=== PATIENT | female | born 2000 | race Caucasian/White ===

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

== ENCOUNTER 2020-01-04 17:03 | Outpatient (CLI) | payer MEDICAID ==
[~2020-01-04] VITALS: Ht 160 cm; Wt 67.3 kg
[2020-01-04 17:00] VITALS: BP 114/56; PULSE 67; TEMP 98.3
[2020-01-04 17:18] VITALS: BP 114/56; PULSE 67; TEMP 98.3
[2020-01-04 17:43] VITALS: PULSE 78
--- NOTE | 2020-01-04 17:43 | NUR ---
1700 PATIENT HERE FOR COMPLAINTS OF CRAMPING. EFM ON FHT 125 BABY VERY ACTIVE. PATIENT 22 WEEKS . NO CONTRACTIONS ON MONITOR AND ABDOMEN PALPATES SOFT. ASSESSMENT COMPLETED. DR MCCLELLAN CALLED AND UPDATED AND ORDERS TO DISMISS PATIENT TO HOME TO FOLLOW UP WITH WITH QUESTIONS.
--- NOTE | 2020-01-04 17:45 | NUR ---
1745 ALL DISCHARG INSTRUCTIONS REVIEWED WITH PATIENT AND VERBAL UNDERSTANDING NOTED. PATIENT SAYS CRAMPS ARE BETTER.
== END 2020-01-04 17:46 | disposition home or self-care (01) ==
LOC: LDR 17:03 → LDRO 17:03
DX: O26.892 Other specified pregnancy related conditions, second trimester (principal); Z3A.21 21 weeks gestation of pregnancy
CPT/HCPCS: OP

== ENCOUNTER 2020-02-07 19:38 | Outpatient (CLI) | payer MEDICAID ==
[~2020-02-07] VITALS: Ht 160 cm; Wt 70.9 kg
[2020-02-07 19:45] VITALS: BP 131/56; PULSE 79
[2020-02-07 20:15] VITALS: BP 109/57; PULSE 83; TEMP 98.6
--- NOTE | 2020-02-07 20:23 | NUR ---
1945 PT HERE VIA W/C C/O NOT FEELING THE BABY MOVE FOR 3 HOURS. EFM APPLIED FHT'S 130'S WITH ACCELATIONS AND NO DECELS NOTED.
--- NOTE | 2020-02-07 20:27 | NUR ---
2015 MOVEMENT NOTED WHEN THIS NURSE AT THE BEDSIDE.
== END 2020-02-07 20:40 | disposition home or self-care (01) ==
LOC: LDRO 19:38 → LDR 19:55 → LDRO 19:55
DX: O36.8120 Decreased fetal movements, second trimester, not applicable or unspecified (principal); Z3A.27 27 weeks gestation of pregnancy; Z91.410 Personal history of adult physical and sexual abuse; Z86.32 Personal history of gestational diabetes
CPT/HCPCS: OP

== ENCOUNTER 2020-02-18 22:07 | Outpatient (CLI) | payer MEDICAID ==
[~2020-02-18] VITALS: Ht 160 cm; Wt 70.5 kg
--- NOTE | 2020-02-18 22:05 | NUR ---
Pt arrived on unit ambulatory and escorted by boyfriend. Pt reports having lower abdominal pain every "so often" for the last 3.5 hours. Pt denies any leaking of fluid or vaginal bleeding and reports normal movement. EFM and toco monitors started. Vital signs WNL. SVE by this RN closed/thick/high. Spoke with Dr. Pritchard. FHR tracing, pt complaints, history and SVE reviewed. Orders for discharge home with follow up precautions.
[2020-02-18 22:23] VITALS: BP 110/63; PULSE 89; TEMP 99
[2020-02-18] MEDS ORDERED: LEXAPRO 10MG10 MG PO (22:28)
--- NOTE | 2020-02-18 22:55 | NUR ---
Discharge instructions reviewed with pt and boyfriend at the bedside. Follow up care and return precautions reviewed. Both verbalized an understanding, agreed with the plan and states no questions or concerns at this time.
== END 2020-02-18 23:05 | disposition home or self-care (01) ==
LOC: LDRO 22:07 → LDR 22:57 → LDRO 23:05
DX: O26.93 Pregnancy related conditions, unspecified, third trimester (principal); R10.9 Unspecified abdominal pain; Z62.810 Personal history of physical and sexual abuse in childhood; Z86.32 Personal history of gestational diabetes; Z3A.28 28 weeks gestation of pregnancy
CPT/HCPCS: OP

== ENCOUNTER 2020-03-22 12:52 | Outpatient (CLI) | payer MEDICAID ==
[~2020-03-22] VITALS: Ht 160 cm; Wt 73.6 kg
[2020-03-22 13:00] VITALS: BP 108/63; PULSE 115; TEMP 98.3
[2020-03-22 13:30] VITALS: BP 104/54; PULSE 75
[2020-03-22 13:32] LABS: COLLECTION METHOD CLEAN CATCH
[2020-03-22 13:40] LABS: HEMATOCRIT 33.6 % (35.0-45.0); HEMOGLOBIN 10.9 g/dl (12.0-15.0); MEAN CELL VOLUME 83 fl (80.0-95.0); MEAN CORPUSCULAR HEMOGLOBIN 27 pg (26.0-32.0); MEAN CORPUSCULAR HGB CONC 32 g/dl (33.0-37.0); MEAN PLATELET VOLUME 10.2 fl (7.4-10.4); PLATELET COUNT 297 K/mm3 (130-400); RED BLOOD COUNT 4.07 M/mm3 (4.10-5.30); REDCELL DISTRIBUTION WIDTH-CV 12.6 % (11.5-14.5)
[2020-03-22 13:45] LABS: ALBUMIN 3.4 gm/dL (3.5-5.0); BILIRUBIN,TOTAL 0.4 mg/dL (0.0-1.0); CALCIUM 8.9 mg/dL (8.4-10.2); CREATININE, serum 0.5 (0.52-1.25); TOTAL PROTEIN 6.8 gm/dL (6.4-8.2)
[2020-03-22 13:51] LABS: MUCOUS Present /lpf; PH 7 (5-8); URINE APPEARANCE Hazy; URINE BACTERIA Rare /hpf; URINE BILIRUBIN Negative (NEGATIVE); URINE BLOOD Negative (NEGATIVE); URINE COLOR Yellow; URINE GLUCOSE Negative (NEGATIVE); URINE KETONE Trace (NEGATIVE); URINE LEUKOCYTE ESTERASE Negative (NEGATIVE); URINE NITRATE Negative (NEGATIVE); URINE PROTEIN(semi-quant) Negative (NEGATIVE); URINE RBC 0-2 /hpf; URINE UROBILINOGEN Negative (NEGATIVE); URINE WBC 0-2 /hpf
[2020-03-22 14:00] VITALS: BP 104/54; PULSE 78
[2020-03-22 14:30] VITALS: BP 104/63; PULSE 78
--- NOTE | 2020-03-22 17:03 | NUR ---
1225-G4L1 33.3WK To unit with complaint of R flank pain and N/V. Denies contractions. Reports good movement. Denies LOF or VB. Placed on EFM. VSS. Per patient pain sarted 4 days ago rates 4/10 at the time of start and has been consistant and getting worse. Nausea and vommitting started last night and reports 3 episodes of emesis since 1899. Reports having spoken to on-call OB Sunday and was instructed to come in if unable to keep anything down or pain got worse. Denies taking any medication for pain today but tried tylenol early when pain started. States bath and other position changes do not help. Reactive FHR on EFM. Assessment complete. 1245-Dr. Alexis notified. Orders recieved for CBC,CMB Clean catch UA and liter of LR and 1 GM tylenol PO PRN. [id number] emesis of 300, oral care provided. 1300-IV to left hand, blood collected and sent to lab per MD orders. 1425-Dr. Alexis updated on strip and VS. Reviewed labs with MD. Orders recieved to discharge patient home with instructions to push fluid. 1430-Patient off EFM. 1450-Reviewed discharge instructions with patient. Verbalized understanding. 1452-Patient ambulatory off unit.
== END 2020-03-22 14:52 | disposition home or self-care (01) ==
LOC: LDRO 12:52 → LDR 13:09 → LDRO 14:52
PROVIDERS: Obstetrics & Gynecology
DX: O26.893 Other specified pregnancy related conditions, third trimester (principal); R11.0 Nausea; M54.9 Dorsalgia, unspecified; Z3A.33 33 weeks gestation of pregnancy
CPT/HCPCS: OP; J2405; J7120

== ENCOUNTER 2020-04-05 06:19 | Outpatient (CLI) | payer SELFPAY ==
[~2020-04-05] VITALS: Ht 160 cm; Wt 76.4 kg
--- NOTE | 2020-04-05 06:15 | NUR ---
Patient ambulates to LR3 with significant other, changed into gown, FHR/TOCO monitors applied. Patient states she woke up with some pain around 0430 and since then had some gushes of fluid and has had some spotting of blood when she wipes. Denies any regular contractions/decreased movement. Patient states they had sex about 48 hours ago. Plan of care discussed. 0630: SVE-closed/-3 and amniotest negative. Pad swabbed that patient was wearing on admission and slight color change noted to amniotest.
[2020-04-05 06:45] VITALS: BP 102/57; PULSE 60; TEMP 98.5
--- NOTE | 2020-04-05 07:09 | NUR ---
Amniosure done at this time and patient tolerates well. FHR baseline 135bpm. 0738: Patient right lateral and resting. FHR baseline decreasing to 110-115bpm with moderate variability. 0745: Dr. Alexis at nurses station and reviewing FHR strip at this time. 0755: Amniosure negative and Dr. Alexis updated. Dr. Alexis reviewing FHR strip and orders to discharge home at this time. 0800: Patient off monitor and discharge instructions given and verbalizes understanding. 0815: Patient ambulates off unit with significant other.
[2020-04-05 07:15] VITALS: BP 101/51; PULSE 55
[2020-04-05 08:00] VITALS: BP 101/55; PULSE 66; TEMP 98
== END 2020-04-05 08:15 | disposition home or self-care (01) ==
LOC: LDRO 06:19 → LDR 07:05 → LDRO 08:15
DX: O26.853 Spotting complicating pregnancy, third trimester (principal); Z3A.35 35 weeks gestation of pregnancy; Z91.410 Personal history of adult physical and sexual abuse; Z86.32 Personal history of gestational diabetes; Z91.5 Personal history of self-harm
CPT/HCPCS: OP

== ENCOUNTER 2020-04-23 22:37 | Outpatient (CLI) | payer MEDICAID ==
[~2020-04-23] VITALS: Ht 160 cm; Wt 76.4 kg
--- NOTE | 2020-04-23 22:45 | NUR ---
G4L1 at 38.0 weeks gestation to LDR6 with c/o irregular contractions over the last 2 days. She denies leaking of fluid or vaginal bleeding and reports good movement. Patient changed into gown and wedged to left side in bed. EFMs explained and applied. FHR 150 bpm and reactive. Irregular CTX, mild to palpation. VSS. SVE 1/long/thick. Assessment complete. Plan of care reviewed.
[2020-04-23 23:00] VITALS: BP 109/64; PULSE 113; TEMP 98.1
--- NOTE | 2020-04-23 23:05 | NUR ---
Discharge instructions reviewed with patient and boyfriend. Patient discharged home.
== END 2020-04-23 23:05 | disposition home or self-care (01) ==
LOC: LDRO 22:37
DX: O62.9 Abnormality of forces of labor, unspecified (principal); Z3A.38 38 weeks gestation of pregnancy; Z91.410 Personal history of adult physical and sexual abuse; Z91.5 Personal history of self-harm

== ENCOUNTER → 2020-04-26 | Outpatient (CLI) | payer SELFPAY | LOC: ZCOL.LAB 09:30 | DX: Z20.828 Contact with and (suspected) exposure to other viral communicable diseases (principal) ==

== ENCOUNTER 2020-04-30 07:28 | Inpatient (IN) | payer MEDICAID ==
[~2020-04-30] VITALS: Ht 160.1 cm; Wt 75.5 kg
[2020-04-30] VITALS (42 sets, daily range): BP systolic 97–137; BP diastolic 51–86; PULSE 53–95; TEMP 97.1–98.3
--- NOTE | 2020-04-30 07:35 | NUR ---
0735-G4L1 [address] Dillard ambulatory to LR 5 for induction of labor. Assisted into gown and placed on EFM. Assessment complete. Consents reviewed and signed. 0750-IV to Left forearm. Blood collected and sent to lab per MD orders. LR infusing, see EMAR. 0800-SVE /-3, MELISSA. Updated on plan of care. 0815-Pitocin started per MD order. See EMAR. 0820-MD on unit, reviews strip .
--- NOTE | 2020-04-30 08:34 | NUR ---
0834- on unit reviews variable decel with contractions. No new orders.
[2020-04-30 08:39] LABS: BASO % 0.6 % (0.0-2.0); EOS # 0.1 (0.0-0.7); EOS % 1.3 % (0-4.0); GRAN # 3.8 (1.4-6.5); GRAN % 53.1 % (42.2-75.2); HEMOGLOBIN 11.1 g/dl (12.0-15.0); LYMPH # 2.5 (1.2-3.4); LYMPH % 35.4 % (20.0-51.0); MEAN CELL VOLUME 79 fl (80.0-95.0); MEAN CORPUSCULAR HEMOGLOBIN 25 pg (26.0-32.0); MEAN CORPUSCULAR HGB CONC 31 g/dl (33.0-37.0); MEAN PLATELET VOLUME 10.4 fl (7.4-10.4); MONO # 0.7 (0.1-0.6); MONO % 9.3 % (1.7-9.3); PLATELET COUNT 268 K/mm3 (130-400); RED BLOOD COUNT 4.48 M/mm3 (4.10-5.30); REDCELL DISTRIBUTION WIDTH-CV 13.9 % (11.5-14.5)
[2020-04-30 08:40] LABS: HEMATOCRIT 35.3 % (35.0-45.0)
--- NOTE | 2020-04-30 08:50 | NUR ---
0850-Patient up to bathroom
--- NOTE | 2020-04-30 09:00 | NUR ---
0900-Dr. Garza to room, reviews plan of care and strip with patient. Bedside sono by . Vertex confirmed by MD. Orders to keep pit at 6mu/min at this time. 0940-Patient up to bathroom. Returns to bed requests MILES.
[2020-04-30 09:08] LABS: TRICYCLIC ANTIDEPRESS URINE NEGATIVE
--- NOTE | 2020-04-30 10:15 | NUR ---
1015-Dr. Garza on unit. In to see patient and reviews plan of care. 1018- SVE by MD unchanged, attempt to AROM, no fluid noted. Repositoned WL. 1037-Repositioned WR due to late decels down to 100bpm lasting 60 seconds. 1040-Repositioned back WL. 1050-Updated MD on strip see physician notification.
--- NOTE | 2020-04-30 11:09 | NUR ---
1109-L.YUE Oconnor notified of patients desire for an epidural.
--- NOTE | 2020-04-30 11:40 | NUR ---
1140-YUE Steiner to patient room. 1146-Epidural dosed by YUE, see anesthesia record. 1206-10mg ephedrine given per protocol and YUE Steiner orders, see EMAR 1016-Maternal BP 113/68 HR 71, FHR baseline 100-115bpm marked variability 1224-Dr. Garza updated, see MD notification. 1228-Repositioined WL due to difficulty tracing FHR, RN adjusts EFM 1240-Difficulty maintaining continuos tracing of FHR, FSE attempted to be placed by this RN. Repositioned back WL after unable to secure FSE. leguillon debeader LADI Teixeira requested to room. 1300-Puneet attempts to place FSE. Unchaged SVE and uable to secure FSE. 1304-Dr. Garza updated. reports he will review strip, RN continues to adjust EFM. Pitocin off, Oxygen via oxymask at 10L/min. 1307-10mg ephedrine administered per protocol. IVF bolus. FHR intermittently tracing with FHR 90'sbpm, requested to unit. already inroute. 1312-Patient knee chest and LADI Andrade places FSE. 1317-Dr. Garza to room. Reviews strip and plan of care with patient. 1324-Patient and Dr. Garza agree to proceed back for C/S. Patient prepared for OR. 1326-Patient off EFM and takent to OR.
[2020-04-30] MEDS ORDERED: PERCOCET 325 MG1 TA2 PO (14:28)
[2020-04-30] MEDS ORDERED: IBU600 MG PO (14:28)
--- NOTE | 2020-04-30 17:00 | NUR ---
1700-Updated MD on patient, see physician notification for new orders.
[2020-05-01 04:40] VITALS: BP 97/56; PULSE 66; TEMP 98
[2020-05-01 07:41] LABS: HEMATOCRIT 30.7 % (35.0-45.0); HEMOGLOBIN 9.6 g/dl (12.0-15.0)
[2020-05-01 07:55] VITALS: BP 97/50; PULSE 69; TEMP 97.9
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
[2020-05-01 17:05] VITALS: BP 101/49; PULSE 60; TEMP 98
[2020-05-01 19:32] VITALS: BP 100/53; PULSE 59; TEMP 98.2
[2020-05-02 06:55] VITALS: BP 98/58; PULSE 56; TEMP 97.8
--- NOTE | 2020-05-05 07:51 | NUR ---
Patient's infant's cord blood was negative for illegal drugs in system.
== END 2020-05-02 12:50 | disposition home or self-care (01) | DRG 787 ==
LOC: LDR 07:28 → OB 15:15
PROVIDERS: ADMIT Obstetrics & Gynecology
PROC: 10D00Z1 Extraction of Products of Conception, Low, Open Approach (ICD-10-PCS; principal; 2020-04-30)
DX: O76 Abnormality in fetal heart rate and rhythm complicating labor and delivery (principal); O99.354 Diseases of the nervous system complicating childbirth; G40.909 Epilepsy, unspecified, not intractable, without status epilepticus; O99.52 Diseases of the respiratory system complicating childbirth; O99.344 Other mental disorders complicating childbirth; F41.9 Anxiety disorder, unspecified; F32.9 Major depressive disorder, single episode, unspecified; J45.909 Unspecified asthma, uncomplicated; F43.10 Post-traumatic stress disorder, unspecified; Z37.0 Single live birth; O99.02 Anemia complicating childbirth; D64.9 Anemia, unspecified; G43.909 Migraine, unspecified, not intractable, without status migrainosus; Z3A.39 39 weeks gestation of pregnancy
CPT/HCPCS: J0690; J1885; J2210; J2270; J2400; J2405; J2590; J7120

== ENCOUNTER 2020-07-05 16:07 | Emergency (ER) | payer MEDICAID ==
[~2020-07-05] VITALS: Ht 160 cm; Wt 68.2 kg
[~2020-07-05 16:07] MED LIST changes: +IBU600 MG PO
[2020-07-05 16:15] VITALS: TEMP 97.9
[2020-07-05 17:40] LABS: BASO % 0.4 % (0.0-2.0); EOS # 0.1 (0.0-0.7); EOS % 1.3 % (0-4.0); GRAN # 3.7 (1.4-6.5); GRAN % 53.9 % (42.2-75.2); HEMOGLOBIN 10.8 g/dl (12.0-15.0); LYMPH # 2.5 (1.2-3.4); LYMPH % 36.9 % (20.0-51.0); MEAN CELL VOLUME 77 fl (80.0-95.0); MEAN CORPUSCULAR HEMOGLOBIN 25 pg (26.0-32.0); MEAN CORPUSCULAR HGB CONC 32 g/dl (33.0-37.0); MEAN PLATELET VOLUME 8.8 fl (7.4-10.4); MONO # 0.5 (0.1-0.6); MONO % 7.4 % (1.7-9.3); PLATELET COUNT 355 K/mm3 (130-400); RED BLOOD COUNT 4.34 M/mm3 (4.10-5.30); REDCELL DISTRIBUTION WIDTH-CV 15.5 % (11.5-14.5)
[2020-07-05 17:41] LABS: HEMATOCRIT 33.6 % (35.0-45.0)
[2020-07-05 17:51] LABS: ALBUMIN 4.2 gm/dL (3.5-5.0); BILIRUBIN,TOTAL 0.2 mg/dL (0.0-1.0); CALCIUM 9.1 mg/dL (8.4-10.2); CREATININE, serum 0.55 (0.52-1.25); POTASSIUM 3.5 mmol/L (3.4-5.0); TOTAL PROTEIN 7.5 gm/dL (6.4-8.2)
[2020-07-05 18:49] LABS: COLLECTION METHOD CATHETER
[2020-07-05 19:00] LABS: MUCOUS Present /lpf; PH 5 (5-8); URINE APPEARANCE Hazy; URINE BACTERIA Rare /hpf; URINE BILIRUBIN Negative (NEGATIVE); URINE BLOOD 3+ (NEGATIVE); URINE COLOR Yellow; URINE GLUCOSE Negative (NEGATIVE); URINE KETONE Negative (NEGATIVE); URINE LEUKOCYTE ESTERASE Negative (NEGATIVE); URINE NITRATE Negative (NEGATIVE); URINE PROTEIN(semi-quant) Negative (NEGATIVE); URINE RBC 20-50 /hpf; URINE UROBILINOGEN Negative (NEGATIVE)
[2020-07-05 20:09] VITALS: BP 96/42; PULSE 71
== END 2020-07-05 20:08 | disposition home or self-care (01) ==
LOC: COL.ER 16:07
PROVIDERS: Physician Assistant
DX: O86.01 Infection of obstetric surgical wound, superficial incisional site (principal); O72.1 Other immediate postpartum hemorrhage
CPT/HCPCS: J2270; J2405; J7030

== ENCOUNTER 2020-10-20 00:37 | Emergency (ER) | payer MEDICAID ==
[~2020-10-20] VITALS: Ht 160 cm; Wt 80.0 kg
[2020-10-20 00:41] VITALS: TEMP 98.7
[2020-10-20 01:03] LABS: COLLECTION METHOD CATHETER
[2020-10-20 01:05] LABS: BASO # 0.1 (0.0-0.2); BASO % 0.7 % (0.0-2.0); EOS # 0.2 (0.0-0.7); GRAN # 3.8 (1.4-6.5); GRAN % 46.8 % (42.2-75.2); HEMATOCRIT 37.2 % (35.0-45.0); HEMOGLOBIN 11.8 g/dl (12.0-15.0); LYMPH # 3.4 (1.2-3.4); LYMPH % 41.1 % (20.0-51.0); MEAN CELL VOLUME 76 fl (80.0-95.0); MEAN CORPUSCULAR HEMOGLOBIN 24 pg (26.0-32.0); MEAN CORPUSCULAR HGB CONC 32 g/dl (33.0-37.0); MEAN PLATELET VOLUME 8.6 fl (7.4-10.4); MONO # 0.8 (0.1-0.6); MONO % 9.2 % (1.7-9.3); PLATELET COUNT 387 K/mm3 (130-400); RED BLOOD COUNT 4.89 M/mm3 (4.10-5.30); REDCELL DISTRIBUTION WIDTH-CV 15.5 % (11.5-14.5)
[2020-10-20 01:09] LABS: MUCOUS Present /lpf; PH 7 (5-8); URINE APPEARANCE Hazy; URINE BACTERIA None Seen /hpf; URINE BILIRUBIN Negative (NEGATIVE); URINE BLOOD Negative (NEGATIVE); URINE COLOR Yellow; URINE GLUCOSE Negative (NEGATIVE); URINE KETONE Negative (NEGATIVE); URINE LEUKOCYTE ESTERASE Negative (NEGATIVE); URINE NITRATE Negative (NEGATIVE); URINE PROTEIN(semi-quant) Negative (NEGATIVE); URINE RBC 0-2 /hpf; URINE UROBILINOGEN Negative (NEGATIVE)
[2020-10-20 01:15] LABS: ALBUMIN 4.3 gm/dL (3.5-5.0); BILIRUBIN,TOTAL 0.3 mg/dL (0.0-1.0); CALCIUM 9.4 mg/dL (8.4-10.2); CREATININE, serum 0.7 (0.52-1.25); POTASSIUM 3.9 mmol/L (3.4-5.0); TOTAL PROTEIN 7.7 gm/dL (6.4-8.2)
[2020-10-20 02:27] VITALS: BP 128/70; PULSE 66
== END 2020-10-20 02:27 | disposition home or self-care (01) ==
LOC: COL.ER 00:37
PROVIDERS: Family Medicine
DX: R10.2 Pelvic and perineal pain (principal)
CPT/HCPCS: J1885

== ENCOUNTER → 2021-03-17 | Outpatient (CLI) | payer MEDICAID ==
[~2021-03-17] MED LIST changes: +FLEXERIL 1010 MG/TAB PO
== END ==
LOC: COL.RAD 07:53
DX: R10.2 Pelvic and perineal pain (principal)
CPT/HCPCS: Q9967

== ENCOUNTER 2021-03-18 15:46 | Emergency (ER) | payer MEDICAID ==
[~2021-03-18] VITALS: Ht 160 cm; Wt 81.8 kg
[~2021-03-18 15:46] MED LIST changes: -FLEXERIL 1010 MG/TAB PO
[2021-03-18 15:53] VITALS: TEMP 98.2
[2021-03-18 16:44] LABS: BASO # 0.1 (0.0-0.2); BASO % 0.6 % (0.0-2.0); EOS # 0.1 (0.0-0.7); EOS % 1.7 % (0-4.0); GRAN % 62.2 % (42.2-75.2); HEMATOCRIT 37.9 % (35.0-45.0); HEMOGLOBIN 12.6 g/dl (12.0-15.0); LYMPH # 2.3 (1.2-3.4); MEAN CELL VOLUME 80 fl (80.0-95.0); MEAN CORPUSCULAR HEMOGLOBIN 27 pg (26.0-32.0); MEAN CORPUSCULAR HGB CONC 33 g/dl (33.0-37.0); MEAN PLATELET VOLUME 8.6 fl (7.4-10.4); MONO # 0.6 (0.1-0.6); MONO % 7.1 % (1.7-9.3); PLATELET COUNT 404 K/mm3 (130-400); RED BLOOD COUNT 4.76 M/mm3 (4.10-5.30); REDCELL DISTRIBUTION WIDTH-CV 13.8 % (11.5-14.5)
[2021-03-18 16:48] LABS: BILIRUBIN,TOTAL 0.2 mg/dL (0.0-1.0); CALCIUM 8.6 mg/dL (8.4-10.2); CREATININE, serum 0.53 (0.52-1.25); POTASSIUM 3.7 mmol/L (3.4-5.0); TOTAL PROTEIN 7.2 gm/dL (6.4-8.2)
[2021-03-18 17:23] LABS: COLLECTION METHOD CLEAN CATCH
[2021-03-18 17:31] LABS: MUCOUS Present /lpf; PH 6 (5-8); URINE APPEARANCE Hazy; URINE BACTERIA Rare /hpf; URINE BILIRUBIN Negative (NEGATIVE); URINE BLOOD 1+ (NEGATIVE); URINE COLOR Yellow; URINE GLUCOSE Negative (NEGATIVE); URINE KETONE Negative (NEGATIVE); URINE LEUKOCYTE ESTERASE Negative (NEGATIVE); URINE NITRATE Negative (NEGATIVE); URINE PROTEIN(semi-quant) Negative (NEGATIVE); URINE RBC 0-2 /hpf; URINE UROBILINOGEN Negative (NEGATIVE)
[2021-03-18] MEDS ORDERED: FLEXERIL 1010 MG/TAB PO (17:54)
[2021-03-18 18:01] VITALS: BP 132/70; PULSE 78
== END 2021-03-18 18:01 | disposition home or self-care (01) ==
LOC: COL.ER 15:46
PROVIDERS: Physician Assistant
DX: S39.012A Strain of muscle, fascia and tendon of lower back, initial encounter (principal); Z87.891 Personal history of nicotine dependence; Z32.02 Encounter for pregnancy test, result negative; X58.XXXA Exposure to other specified factors, initial encounter
CPT/HCPCS: J1885; J7030

== ENCOUNTER 2021-07-15 14:05 | Emergency (ER) | payer MEDICAID ==
[~2021-07-15] VITALS: Ht 160 cm; Wt 83.2 kg
[~2021-07-15 14:05] MED LIST changes: +FLEXERIL 1010 MG/TAB PO
[2021-07-15 14:21] VITALS: TEMP 97.9
[2021-07-15 15:23] LABS: COLLECTION METHOD CLEAN CATCH
[2021-07-15 15:26] LABS: BASO # 0.1 K/mm3 (0.0-0.2); BASO % 0.8 % (0.0-2.0); EOS # 0.2 K/mm3 (0.0-0.7); EOS % 1.7 % (0-4.0); GRAN # 5.9 K/mm3 (1.4-6.5); GRAN % 59.8 % (42.2-75.2); HEMATOCRIT 39.9 % (37.0-47.0); HEMOGLOBIN 13.3 g/dl (12.5-16.0); LYMPH % 30.2 % (20.0-51.0); MEAN CELL VOLUME 80 fl (80.0-100.0); MEAN CORPUSCULAR HEMOGLOBIN 27 pg (27.0-31.0); MEAN CORPUSCULAR HGB CONC 33 g/dl (33.0-37.0); MEAN PLATELET VOLUME 8.9 fl (7.4-10.4); MONO # 0.7 K/mm3 (0.1-0.6); MONO % 7.3 % (1.7-9.3); PLATELET COUNT 386 K/mm3 (130-400); RED BLOOD COUNT 4.98 M/mm3 (4.10-5.30); REDCELL DISTRIBUTION WIDTH-CV 13.6 % (11.5-14.5)
[2021-07-15 15:33] LABS: MUCOUS Present /lpf; PH 5 (5-8); SQUAMOUS EPITHELIAL 0-2 /hpf; URINE APPEARANCE Hazy; URINE BACTERIA None Seen /hpf; URINE BILIRUBIN Negative (NEGATIVE); URINE BLOOD 1+ (NEGATIVE); URINE COLOR Yellow; URINE GLUCOSE Negative (NEGATIVE); URINE KETONE Negative (NEGATIVE); URINE LEUKOCYTE ESTERASE Negative (NEGATIVE); URINE NITRATE Negative (NEGATIVE); URINE PROTEIN(semi-quant) Negative (NEGATIVE); URINE RBC 0-2 /hpf; URINE UROBILINOGEN Negative (NEGATIVE)
[2021-07-15 15:45] LABS: ALBUMIN 3.7 gm/dL (3.5-5.0); BILIRUBIN,TOTAL 0.2 mg/dL (0.2-1.2); CALCIUM 9.4 mg/dL (8.4-10.2); CREATININE, serum 0.7 mg/dL (0.57-1.11); POTASSIUM 3.8 mmol/L (3.5-4.5); TOTAL PROTEIN 7.7 gm/dL (6.2-8.1)
[2021-07-15 17:25] VITALS: BP 121/71; PULSE 92
== END 2021-07-15 17:25 | disposition home or self-care (01) ==
LOC: COL.ER 14:05
PROVIDERS: Nurse Practitioner
DX: K92.1 Melena (principal); Z32.02 Encounter for pregnancy test, result negative
CPT/HCPCS: Q9967

== ENCOUNTER 2021-07-27 10:59 | Outpatient (RCR) | payer OTHER | END 2021-09-30 | disposition home or self-care (01) | LOC: WSOH | DX: S21.052A Open bite of left breast, initial encounter (principal); Z87.59 Personal history of other complications of pregnancy, childbirth and the puerperium; Z98.890 Other specified postprocedural states; Y99.0 Civilian activity done for income or pay ==

== ENCOUNTER → 2021-12-22 | Outpatient (CLI) | payer MEDICAID ==
[2021-12-22 16:39] LABS: COLLECTION METHOD CLEAN CATCH
[2021-12-22 16:46] LABS: BASO # 0.1 K/mm3 (0.0-0.2); BASO % 0.5 % (0.0-2.0); EOS # 0.2 K/mm3 (0.0-0.7); EOS % 1.5 % (0.0-4.0); GRAN % 59.1 % (42.2-75.2); HEMATOCRIT 42.2 % (37.0-47.0); HEMOGLOBIN 14.1 g/dl (12.5-16.0); LYMPH # 3.3 K/mm3 (1.2-3.4); LYMPH % 32.5 % (20.0-51.0); MEAN CELL VOLUME 85 fl (80.0-100.0); MEAN CORPUSCULAR HEMOGLOBIN 28 pg (27-31); MEAN CORPUSCULAR HGB CONC 33 g/dl (33.0-37.0); MEAN PLATELET VOLUME 8.9 fl (7.4-10.4); MONO # 0.6 K/mm3 (0.1-0.6); MONO % 6.1 % (1.7-9.3); PLATELET COUNT 357 K/mm3 (130-400); RED BLOOD COUNT 4.96 M/mm3 (4.10-5.30); REDCELL DISTRIBUTION WIDTH-CV 12.8 % (11.5-14.5)
[2021-12-22 16:48] LABS: MUCOUS Present (NOT PRESENT); PH 5 (5-8); URINE APPEARANCE Cloudy (CLEAR/HAZY); URINE BACTERIA None Seen /hpf (NONE SEEN); URINE BILIRUBIN Negative (NEGATIVE); URINE BLOOD Negative (NEGATIVE); URINE COLOR Yellow (YELLOW); URINE GLUCOSE Negative (NEGATIVE); URINE KETONE 1+ (NEGATIVE); URINE LEUKOCYTE ESTERASE Negative (NEGATIVE); URINE NITRATE Negative (NEGATIVE); URINE PROTEIN(semi-quant) Negative (NEGATIVE); URINE RBC 0-2 /hpf (0-2); URINE UROBILINOGEN Negative (NEGATIVE); URINE WBC 0-2 /hpf (0-2)
[2021-12-22 17:26] LABS: HIV 1/2 Antibodies Non-Reactive; HIV-1p24 Antigen Non-Reactive
[2021-12-22 23:18] LABS: HEPATITIS B SURFACE ANTIGEN Negative (Negative); HEPATITIS C VIRUS ANTIBODY Negative (Negative)
== END ==
LOC: COL.LAB 15:55
DX: Z13.1 Encounter for screening for diabetes mellitus (principal); Z00.00 Encounter for general adult medical examination without abnormal findings
CPT/HCPCS: 86780

== ENCOUNTER → 2022-04-26 | Outpatient (CLI) | payer MEDICAID ==
[2022-04-26 15:06] LABS: BILIRUBIN,TOTAL 0.3 mg/dL (0.2-1.2); CALCIUM 8.9 mg/dL (8.4-10.2); CREATININE, serum 0.62 mg/dL (0.57-1.11); POTASSIUM 3.6 mmol/L (3.5-4.5); TOTAL PROTEIN 6.6 gm/dL (6.2-8.1)
== END ==
LOC: COL.LAB 13:18
PROVIDERS: Obstetrics & Gynecology
DX: O21.9 Vomiting of pregnancy, unspecified (principal); Z3A.23 23 weeks gestation of pregnancy

== ENCOUNTER 2022-06-20 14:21 | Emergency (ER) | payer MEDICAID ==
[~2022-06-20] VITALS: Ht 160 cm; Wt 82.8 kg
[2022-06-20 14:39] VITALS: TEMP 97.9
[2022-06-20 15:22] LABS: BASO % 0.4 % (0.0-2.0); EOS # 0.1 K/mm3 (0.0-0.7); EOS % 1.2 % (0.0-4.0); GRAN # 5.5 K/mm3 (1.4-6.5); GRAN % 67.7 % (42.2-75.2); HEMATOCRIT 32.2 % (37.0-47.0); HEMOGLOBIN 10.8 g/dl (12.5-16.0); LYMPH # 1.9 K/mm3 (1.2-3.4); LYMPH % 23.9 % (20.0-51.0); MEAN CELL VOLUME 81 fl (80.0-100.0); MEAN CORPUSCULAR HEMOGLOBIN 27 pg (27-31); MEAN CORPUSCULAR HGB CONC 34 g/dl (33.0-37.0); MEAN PLATELET VOLUME 9.1 fl (7.4-10.4); MONO # 0.5 K/mm3 (0.1-0.6); MONO % 6.3 % (1.7-9.3); PLATELET COUNT 330 K/mm3 (130-400); RED BLOOD COUNT 3.96 M/mm3 (4.10-5.30); REDCELL DISTRIBUTION WIDTH-CV 12.6 % (11.5-14.5)
--- NOTE | 2022-06-20 15:27 | NUR ---
Pt seen in ED by this RN for FHR tracing. Pt reports she is 31 weeks G5L2 pt of Dr. Olga Lopes in [place]. Pt also reports occasional contractions, denies any leaking of fluid or vaginal bleeding and reports normal movement. EFM and toco monitors started. See monitoring flowsheet for details.
[2022-06-20 15:34] LABS: ALBUMIN 2.8 gm/dL (3.5-5.0); BILIRUBIN,TOTAL 0.3 mg/dL (0.2-1.2); C-REACTIVE PROTEIN 0.85 mg/dL (0.00-0.50); CALCIUM 8.7 mg/dL (8.4-10.2); CREATININE, serum 0.55 mg/dL (0.57-1.11); POTASSIUM 3.6 mmol/L (3.5-4.5); TOTAL PROTEIN 6.7 gm/dL (6.2-8.1)
[2022-06-20 16:01] LABS: COLLECTION METHOD CLEAN CATCH
[2022-06-20 16:04] LABS: URINE APPEARANCE Clear (CLEAR/HAZY); URINE COLOR Yellow (YELLOW)
[2022-06-20 16:05] LABS: URINE BLOOD Negative (NEGATIVE); URINE GLUCOSE Negative (NEGATIVE); URINE KETONE Negative (NEGATIVE); URINE NITRATE Negative (NEGATIVE); URINE PROTEIN(semi-quant) Negative (NEGATIVE); URINE UROBILINOGEN 0.2 E.U/dL (0.2-1.0)
[2022-06-20 16:08] LABS: URINE BACTERIA Rare /hpf (NONE SEEN); URINE RBC 0-2 /hpf (0-2)
[2022-06-20 16:31] VITALS: BP 105/57; PULSE 68
[2022-06-27] MEDS ORDERED: CEPHALEXIN250 M1 PO (16:32)
[2022-06-27] MEDS ORDERED: PRENATAL (16:32)
== END 2022-06-20 16:31 | disposition home or self-care (01) ==
LOC: COL.ER 14:21
PROVIDERS: Family Medicine
DX: O99.283 Endocrine, nutritional and metabolic diseases complicating pregnancy, third trimester (principal); E86.0 Dehydration; Z3A.31 31 weeks gestation of pregnancy
CPT/HCPCS: J7120

== ENCOUNTER → 2022-07-19 | Outpatient (CLI) | payer MEDICAID ==
[~2022-07-19] MED LIST changes: +CEPHALEXIN250 M1 PO; +PRENATAL
== END ==
LOC: COL.RAD 12:23
DX: R00.0 Tachycardia, unspecified (principal)
CPT/HCPCS: Q9967